=== PATIENT | male | born 1975 | race Hispanic/Latino ===

== ENCOUNTER 2021-02-27 09:29 | Emergency (ER) | payer OTHER ==
[~2021-02-27] VITALS: Ht 175.3 cm; Wt 122.9 kg
[2021-02-27] MEDS ORDERED: IBUPROFEN 400 MG TAB PO ONE (10:15)
[2021-02-27] MEDS ORDERED: ACETAMINOPHEN 325 MG TAB PO ONE (10:15)
[2021-02-27] MEDS ORDERED: SODIUM CHLORIDE 0.9% 100 ML ONE (11:40)
[2021-02-27] MEDS ORDERED: CASIRIVIMAB/IMDEVIMAB 10 ML in SODIUM CHLORIDE 0.9% 100 ML IV ONE (11:45)
== END 2021-02-27 12:25 | disposition home or self-care (01) ==
LOC: ER 09:34
DX: R50.9 Fever, unspecified (principal); R53.81 Other malaise; U07.1 COVID-19
CPT/HCPCS: 99283; J7050; U0002